=== PATIENT | female | born 1990 | race Caucasian/White ===

== ENCOUNTER 2024-11-02 10:21 | Emergency (ER) | payer SELFPAY ==
[2024-11-02] MEDS ORDERED: Take Home: Azithromycin 250 MG, 2 Tab Pack PO ONE (10:37)
[2024-11-02] MEDS: Benzonatate 100 MG Cap PO PRN (10:47)
[2024-11-02] MEDS: Azithromycin 250 MG Tab PO ONE (10:47)
== END 2024-11-02 10:51 | disposition home or self-care (01) ==
LOC: VM.ED 10:21
DX: J20.9 Acute bronchitis, unspecified (principal); Z88.7 Allergy status to serum and vaccine; Z79.899 Other long term (current) drug therapy
CPT/HCPCS: 99283; A9270-GY